=== PATIENT | male | born 1965 | race Two or more races ===

== ENCOUNTER 2018-05-17 11:11 | Inpatient (IN) | payer OTHER ==
[2018-05-17 13:50] VITALS: BMI 22.2
--- NOTE | 2018-05-17 14:12 | HP ---
COWS - Scale Resting Pulse: 1= [place] 81-100 Sweatin=Flushed/Facial Moisture Restless Observation: 3= Extraneous Movement Pupil Size: 1= Pupils >than Normal Bone or Joint Aches: 2= Severe Diffuse Aches Runny Nose/ Eye Tearin= Runny Nose/Eyes GI Upset > 30mins: 3= Vomiting/Diarrhea Tremor Observation: 2= Slight Tremor Visible Yawning Observation: 0= None Anxiety or Irritability: 4=Extreme Anxiety Goose Flesh Skin: 0=Smooth Skin COWS Score: 20 CIWA Score Nausea/Vomitin Muscle Tremors: 2 Anxiety: 3 Agitation: 0-Normal Activity Paroxysmal Sweats: 3 Orientation: 1-Uncertain about Date Tacttile Disturbances: 1-Very Mild Itch/Numbness Auditory Disturbances: 1-Very Mild Visual Disturbances: 2-Mild Sensitivity Headache: 4-Moderately Severe (8/10) CIWA-Ar Total Score: 20 - Admission Criteria OAS Guidelines: Admission for Medically Managed Detox: Requires at least one of the followin. CIWA greater than 12 2. Seizures within the past 24 hours 3. Delirium tremens within the past 24 hours 4. Hallucinations within the past 24 hours 5. Acute intervention needed for co occurring medical disorder 6. Acute intervention needed for co occurring psychiatric disorder 7. Severe withdrawal that cannot be handled at a lower level of care (continued vomiting, continued diarrhea, abnormal vital signs) requiring intravenous medication and/or fluids 8. Patient presents the following: CIWA greater than 12 Admission Criteria Met: Admission criteria met Admission ROS [facility] Chief Complaint: " detox" Allergies/Adverse Reactions: Allergies Allergy/AdvReac Type Severity Reaction Status Date / Time acetaminophen [From Tylenol] Allergy Severe Verified 05/17/18 13:45 Fish Containing Products Allergy Severe Verified 05/17/18 13:45 History of Present Illness: 53 yo male with hx of nicotine, heroin ( IV), alcohol and cocaine dependence is here seeking detox d/t withdrawal symptoms. last detox [facility] one year ago. Reports no significant period of sobriety. Utox positive for [place], Fen, bzo, MTD , denies MTD or bzo use. PMHX: Hep C. Psych: denies. Denies suicidal / homicidal ideation or hx of suicide attempts. Report suffered a seizure three weeks ago " because I did not drink." Denies hx of overdose. Exam Limitations: No Limitations - Ebola screening Have you traveled outside of the country in the last 21 days: No Have you had contact with anyone from an Ebola affected area: No - Review of Systems Constitutional: Diaphoresis, Loss of Appetite, Night Sweats, Weakness, Unintentional Wgt. 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) Neuro: reports: Headache, Dizziness Endocrine: reports: Excessive Sweating, Increased Thirst Hematology: reports: No Symptoms Reported Psychiatric: reports: Orientated x3, Anxious (restless) Other Systems: Reviewed and Negative Patient History - Patient Medical History Hx Anemia: No Hx Asthma: No Hx Chronic Obstructive Pulmonary Disease (COPD): No Hx Cancer: No Hx Cardiac Disorders: No Hx Congestive Heart Failure: No Hx Hypertension: No Hx Hypercholesterolemia: No Hx Pacemaker: No HX Cerebrovascular Accident: No Hx Seizures: No Hx Dementia: No Hx Diabetes: No Hx Gastrointestinal Disorders: No Hx Liver Disease: Yes (no treatment ) Hx Genitourinary Disorders: No Hx Sexually Transmitted Disorders: No Hx Renal Disease (ESRD): No Hx Thyroid Disease: No Hx Human Immunodeficiency Virus (HIV): No (negative) Hx Hepatitis C: Yes Hx Depression: No Hx Suicide Attempt: No Hx Bipolar Disorder: No Hx Schizophrenia: No - Patient Surgical History Past Surgical History: No - PPD History Previous Implant?: No Documented Results: Negative w/proof Date: 07/21/13 PPD to be Administered?: Yes - Smoking Cessation Smoking history: Current every day smoker Have you smoked in the past 12 months: No Aproximately how many cigarettes per day: 10 Cigars Per Day: 0 Hx Chewing Tobacco Use: No Initiated information on smoking cessation: Yes 'Breaking Loose' booklet given: 05/17/18 - Substance & Tx. History Hx Alcohol Use: Yes Hx Substance Use: Yes Substance Use Type: Alcohol, Heroin Hx Substance Use Treatment: Yes ([facility] one year ago ) - Substances abused Alcohol Substance route: Oral Frequency: Daily Amount used: 2 PINTS VODKA AND 2 + 6PACKS BEER Age of first use: 17 Date of last use: 05/17/18 Heroin Substance route: Injection Frequency: Daily Amount used: 15 BAGS Age of first use: 17 Date of last use: 05/17/18 Family Disease History - Family Disease History Family History: Denies Admission Physical Exam [facility] - Vital Signs Vital Signs: Vital Signs - 24 hr 05/17/18 05/17/18 13:46 13:59 Temperature 97.1 F L 97.1 F L Pulse Rate 96 H 96 H Respiratory 18 18 Rate Blood Pressure 128/79 128/79 - Physical General Appearance: Yes: Disheveled, Moderate Distress, Thin, Sweating, Anxious (restless) HEENTM: Yes: EOMI, Hearing grossly Normal, Normal ENT Inspection, Normocephalic , Normal Voice, SALUD, Pharynx Normal, Tm's normal, Other (dry mucous membranes, poor dentition) Respiratory: Yes: Chest Non-Tender, Lungs Clear, Normal Breath Sounds, No Respiratory Distress, No Accessory Muscle Use Neck: Yes: Within Normal Limits Breast: Yes: Breast Exam Deferred Cardiology: Yes: Regular Rhythm, Regular Rate Abdominal: Yes: Normal Bowel Sounds, Non Tender, Flat, Soft Genitourinary: Yes: Within Normal Limits Back: Yes: Normal Inspection Musculoskeletal: Yes: full range of Motion, Gait Steady, Pelvis Stable, Back pain Extremities: Yes: Normal Capillary Refill, Normal Inspection, Normal Range of Motion 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: 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, Fully Oriented, Alert, Motor Strength 5/5, Depressed Affect Integumentary: Yes: Normal Color, Warm, Diaphoresis, Other (bilateral anticubital fossa, no infection present) Lymphatic: Yes: Within Normal Limits - Diagnostic (1) Alcohol dependence with uncomplicated withdrawal Current Visit: Yes Status: Acute (2) Opioid dependence with withdrawal Current Visit: Yes Status: Acute (3) IVDU (intravenous drug user) Current Visit: Yes Status: Acute (4) Hep C w/ coma, chronic Current Visit: Yes Status: Acute (5) Nicotine dependence Current Visit: Yes Status: Chronic Qualifiers: Nicotine product type: cigarettes (6) Weight decreased Current Visit: Yes Status: Chronic Cleared for Admission [facility] - Detox or Rehab [facility] Level of Care: Medically Managed Detox Regimen/Protocol: Methadone/Librium Breathalyzer - Breathalyzer Breathalyzer: 0 Urine Drug Screen - Test Device Lot number: [id number] Expiration date: 01/09/20 - Control Is test valid?: Yes - Results Drug screen NEGATIVE: No Urine drug screen results: [place]-Cocaine, FEN-Fentanyl, MOP-Opiates, MTD-Methadone , BZO-Benzodiazepines Inpatient Rehab Admission - Rehab Decision to Admit Inpatient rehab admission?: No
[2018-05-17] MEDS ORDERED: MELATONIN 5 MG TABLETS PO PRN (14:18)
[2018-05-17] MEDS ORDERED: MENTHOL/PHENOL 1 EACH UD MM PRN (14:18)
[2018-05-17] MEDS ORDERED: MAGNESIUM CITRATE 300 ML BOTTLE PO PRN (14:18)
[2018-05-17] MEDS ORDERED: METHADONE HCL 10 MG TABLET (FOR DETOX USE ONLY) PO ONE ×2 (14:18→23:00)
[2018-05-17] MEDS ORDERED: BISMUTH SUBSALICYLATE 262 MG/15 ML BTL PO PRN (14:18)
[2018-05-17] MEDS ORDERED: IBUPROFEN 400 MG TABLET (FP) PO PRN ×2 (14:18)
[2018-05-17] MEDS ORDERED: NICOTINE POLACRILEX 2 MG GUM BUC PRN (14:18)
[2018-05-17] MEDS ORDERED: MAGNESIUM HYDROX 2400MG/30ML ORAL SUSPENSION 30 ML CUP PO PRN (14:18)
[2018-05-17] MEDS ORDERED: METHOCARBAMOL 500 MG TABLET PO PRN (14:18)
[2018-05-17] MEDS ORDERED: MAG HYDROX/AL HYDROX/SIMETH 30 ML UNIT-DOSE CUP PO PRN (14:18)
[2018-05-17] MEDS: BACITRACIN 0.9 GM PACKET TP SCH (15:47)
[2018-05-17 17:09] LABS: HEMATOCRIT 37.2 % (35.4-49); HEMOGLOBIN 12.1 GM/dL (11.7-16.9); MCH 28.1 pg (25.7-33.7); MCHC 32.5 g/dl (32.0-35.9); MEAN CELL VOLUME 86.5 fl (80-96); MEAN PLT VOLUME 8.1 fl (7.5-11.1); PLATELET COUNT 308 K/MM3 (134-434); RDW 13.7 % (11.9-15.9); WHITE BLOOD COUNT 6.4 K/mm3 (4.0-10.0)
[2018-05-17 17:21] LABS: ALBUMIN 3.4 g/dl (3.4-5.0); ALK PHOS 99 U/L (45-117); ANION GAP 6 MMOL/L (8-16); BILIRUBIN,TOTAL 0.6 mg/dL (0.2-1); BLOOD UREA NITROGEN 13 mg/dL (7-18); CALCIUM 8.4 mg/dL (8.5-10.1); CHLORIDE 104 mmol/L (98-107); CO2 31 mmol/L (21-32); GLUCOSE,RANDOM 97 mg/dL (74-106); POTASSIUM 4.4 mmol/L (3.5-5.1); SGOT/AST 81 U/L (15-37); SGPT/ALT 49 U/L (13-61); SODIUM 140 mmol/L (136-145); TOT PROT 6.8 g/dl (6.4-8.2)
[2018-05-17] MEDS: chlordiazePOXIDE HCL 25 MG CAPSULE PO SCH ×2 (17:46→22:17)
[2018-05-17] MEDS: cloNIDine HCL 0.1 MG TABLET PO PRN (20:27)
[2018-05-17] MEDS: THIAMINE HCL 100 MG TABLET (FP) PO SCH (22:16)
[2018-05-18] MEDS: chlordiazePOXIDE HCL 25 MG CAPSULE PO SCH ×4 (06:21→22:04)
[2018-05-18] MEDS ORDERED: METHADONE HCL 10 MG TABLET (FOR DETOX USE ONLY) PO ONE (10:00)
[2018-05-18] MEDS: BACITRACIN 0.9 GM PACKET TP SCH (10:32)
[2018-05-18] MEDS: NICOTINE 14 MG/24 HOURS TOPICAL PATCH TD SCH (10:33)
[2018-05-18] MEDS: PRENATAL VITAMINS W/ FOLIC ACID TABLET (FP) PO SCH (10:33)
[2018-05-18 11:15] LABS: URINE APPEARANCE CLEAR; URINE BILIRUBIN NEGATIVE (NEGATIVE); URINE COLOR YELLOW; URINE GLUCOSE (UA) NEGATIVE (NEGATIVE); URINE KETONE NEGATIVE (NEGATIVE); URINE LEUK ESTERASE NEGATIVE (NEGATIVE); URINE NITRITE NEGATIVE (NEGATIVE); URINE PROTEIN NEGATIVE (NEGATIVE)
--- NOTE | 2018-05-18 11:43 | PN ---
S CIWA - CIWA Score Nausea/Vomitin-No Nausea/No Vomiting Muscle Tremors: 3 Anxiety: 3 Agitation: 3 Paroxysmal Sweats: 3 Orientation: 0-Oriented Tacttile Disturbances: 0-None Auditory Disturbances: 0-None Visual Disturbances: 0-None Headache: 1-Very Mild CIWA-Ar Total Score: 13 BHS COWS - Scale Resting Pulse: 0= [place] 80 or Below Sweatin=Flushed/Facial Moisture Restless Observation: 1= Difficult to Sit Still Pupil Size: 0= Normal to Room Light Bone or Joint Aches: 2= Severe Diffuse Aches Runny Nose/ Eye Tearin= Nasal Congestion GI Upset > 30mins: 0= None Tremor Observation of Outstretched Hands: 2= Slight Tremor Visible Yawning Observation: 2= >3x During Session Anxiety or Irritability: 2=Irritable/Anxious Goose Flesh Skin: 0=Smooth Skin COWS Score: 12 BHS Progress Note (SOAP) Subjective: shakes sweats interrupted sleep body aches agitation loss appetite/some weight. Objective: 05/18/18 11:41 Vital Signs Temperature 97.5 F L 05/18/18 09:56 Pulse Rate 71 05/18/18 09:56 Respiratory Rate 18 05/18/18 09:56 Blood Pressure 109/54 L 05/18/18 09:56 O2 Sat by Pulse Oximetry (%) Laboratory Tests 05/17/18 05/17/18 05/17/18 14:35 14:35 14:35 WBC 6.4 RBC 4.30 Hgb 12.1 Hct 37.2 MCV 86.5 MCH 28.1 MCHC 32.5 RDW 13.7 Plt Count 308 D MPV 8.1 Sodium 140 Potassium 4.4 Chloride 104 Carbon Dioxide 31 Anion Gap 6 L BUN 13 Creatinine 1.0 Creat Clearance w eGFR 78.78 Random Glucose 97 Calcium 8.4 L Total Bilirubin 0.6 AST 81 H ALT 49 Alkaline Phosphatase 99 Total Protein 6.8 Albumin 3.4 Urine Color Urine Appearance Urine pH Ur Specific [place] Urine Protein Urine Glucose (UA) Urine Ketones Urine Blood Urine Nitrite Urine Bilirubin Urine Urobilinogen Ur Leukocyte Esterase RPR Titer Nonreactive HIV 1&2 Antibody Screen HIV P24 Antigen 05/17/18 05/18/18 14:35 05:58 WBC RBC Hgb Hct MCV MCH MCHC RDW Plt Count MPV Sodium Potassium Chloride Carbon Dioxide Anion Gap BUN Creatinine Creat Clearance w eGFR Random Glucose Calcium Total Bilirubin AST ALT Alkaline Phosphatase Total Protein Albumin Urine Color Yellow Urine Appearance Clear Urine pH 7.0 Ur Specific [place] 1.013 Urine Protein Negative Urine Glucose (UA) Negative Urine Ketones Negative Urine Blood Negative Urine Nitrite Negative Urine Bilirubin Negative Urine Urobilinogen 2.0 Ur Leukocyte Esterase Negative RPR Titer HIV 1&2 Antibody Screen Negative HIV P24 Antigen Negative aaox3 ambulating no acute distress Assessment: 05/18/18 11:42 withdrawal sx Plan: continue detox increase fluids ensure plus 120ml po bid
[2018-05-18] MEDS: chlordiazePOXIDE HCL 25 MG CAPSULE PO PRN ×2 (14:06→19:52)
--- NOTE | 2018-05-18 14:21 | EKG ---
Test Reason : Blood Pressure : / mmHG Vent. Rate : 085 BPM Atrial Rate : 085 BPM P-R Int : 128 ms QRS Dur : 088 ms QT Int : 362 ms P-R-T Axes : 076 037 063 degrees QTc Int : 430 ms NORMAL SINUS RHYTHM NORMAL ECG NO PREVIOUS ECGS AVAILABLE Confirmed by MD Joni, Eliazar ([id number]) on 05/18/2018 2:20:44 PM Referred By: Confirmed By:Eliazar Quinones MD
[2018-05-18] MEDS: cloNIDine HCL 0.1 MG TABLET PO PRN (14:46)
[2018-05-18] MEDS: THIAMINE HCL 100 MG TABLET (FP) PO SCH (22:04)
[2018-05-19] MEDS: chlordiazePOXIDE HCL 25 MG CAPSULE PO SCH ×2 (07:01→10:06)
[2018-05-19] MEDS ORDERED: METHADONE HCL 10 MG TABLET (FOR DETOX USE ONLY) PO ONE (10:00)
[2018-05-19] MEDS: PRENATAL VITAMINS W/ FOLIC ACID TABLET (FP) PO SCH (10:06)
[2018-05-19] MEDS: BACITRACIN 0.9 GM PACKET TP SCH (10:06)
[2018-05-19] MEDS: NICOTINE 14 MG/24 HOURS TOPICAL PATCH TD SCH (10:06)
--- NOTE | 2018-05-19 10:44 | PN ---
[facility] CIWA - CIWA Score Nausea/Vomitin-No Nausea/No Vomiting Muscle Tremors: 3 Anxiety: 2 Agitation: 2 Paroxysmal Sweats: 3 Orientation: 0-Oriented Tacttile Disturbances: 0-None Auditory Disturbances: 0-None Visual Disturbances: 0-None Headache: 0-None Present CIWA-Ar Total Score: 10 BHS COWS - Scale Resting Pulse: 0= [place] 80 or Below Sweatin=Flushed/Facial Moisture Restless Observation: 1= Difficult to Sit Still Pupil Size: 0= Normal to Room Light Bone or Joint Aches: 1= Mild Discomfort Runny Nose/ Eye Tearin= Nasal Congestion GI Upset > 30mins: 0= None Tremor Observation of Outstretched Hands: 1= Tremor [place], Not Seen Yawning Observation: 1= 1-2x During Session Anxiety or Irritability: 2=Irritable/Anxious Goose Flesh Skin: 0=Smooth Skin COWS Score: 9 BHS Progress Note (SOAP) Subjective: agitation sweats irritable interrupted sleep Objective: 05/19/18 10:48 Vital Signs Temperature 97.7 F 05/19/18 09:14 Pulse Rate 81 05/19/18 09:14 Respiratory Rate 18 05/19/18 09:14 Blood Pressure 113/64 05/19/18 09:14 O2 Sat by Pulse Oximetry (%) Laboratory Tests 05/17/18 05/17/18 05/17/18 14:35 14:35 14:35 WBC 6.4 RBC 4.30 Hgb 12.1 Hct 37.2 MCV 86.5 MCH 28.1 MCHC 32.5 RDW 13.7 Plt Count 308 D MPV 8.1 Sodium 140 Potassium 4.4 Chloride 104 Carbon Dioxide 31 Anion Gap 6 L BUN 13 Creatinine 1.0 Creat Clearance w eGFR 78.78 Random Glucose 97 Calcium 8.4 L Total Bilirubin 0.6 AST 81 H ALT 49 Alkaline Phosphatase 99 Total Protein 6.8 Albumin 3.4 Urine Color Urine Appearance Urine pH Ur Specific [place] Urine Protein Urine Glucose (UA) Urine Ketones Urine Blood Urine Nitrite Urine Bilirubin Urine Urobilinogen Ur Leukocyte Esterase RPR Titer Nonreactive HIV 1&2 Antibody Screen HIV P24 Antigen 05/17/18 05/18/18 14:35 05:58 WBC RBC Hgb Hct MCV MCH MCHC RDW Plt Count MPV Sodium Potassium Chloride Carbon Dioxide Anion Gap BUN Creatinine Creat Clearance w eGFR Random Glucose Calcium Total Bilirubin AST ALT Alkaline Phosphatase Total Protein Albumin Urine Color Yellow Urine Appearance Clear Urine pH 7.0 Ur Specific [place] 1.013 Urine Protein Negative Urine Glucose (UA) Negative Urine Ketones Negative Urine Blood Negative Urine Nitrite Negative Urine Bilirubin Negative Urine Urobilinogen 2.0 Ur Leukocyte Esterase Negative RPR Titer HIV 1&2 Antibody Screen Negative HIV P24 Antigen Negative aaox3 ambulating no acute distress Assessment: 05/19/18 10:49 withdrawal sx Plan: continue detox increase fluids
[2018-05-19] MEDS: chlordiazePOXIDE HCL 25 MG CAPSULE PO PRN (14:07)
[2018-05-19] MEDS ORDERED: chlordiazePOXIDE HCL 10 MG CAPSULE PO PRN (17:00)
[2018-05-19] MEDS: cloNIDine HCL 0.1 MG TABLET PO PRN (17:42)
[2018-05-19] MEDS: chlordiazePOXIDE HCL 10 MG CAPSULE PO SCH ×2 (17:43→22:18)
--- NOTE | 2018-05-19 19:03 | PN ---
S Progress Note Note: Vital Signs Temperature 97.8 F 05/19/18 17:28 Pulse Rate 80 05/19/18 17:28 Respiratory Rate 18 05/19/18 17:28 Blood Pressure 117/62 05/19/18 17:28 O2 Sat by Pulse Oximetry (%) c/o of insomnia one time dose seroquel 25 mg hs continue to monitor
[2018-05-19 21:21] VITALS: BP 120/58; PULSE 81; TEMP 97.2
[2018-05-19] MEDS ORDERED: QUEtiapine FUMARATE 25 MG TABLET (FP) PO ONE (22:00)
[2018-05-19] MEDS: THIAMINE HCL 100 MG TABLET (FP) PO SCH (22:18)
[2018-05-20] MEDS ORDERED: chlordiazePOXIDE HCL 10 MG CAPSULE PO ONE (06:00)
[2018-05-20] MEDS ORDERED: METHADONE HCL 10 MG TABLET (FOR DETOX USE ONLY) PO ONE (10:00)
[2018-05-20] MEDS ORDERED: chlordiazePOXIDE HCL 10 MG CAPSULE PO SCH (17:00)
[2018-05-21] MEDS ORDERED: METHADONE HCL 5 MG TABLET (FOR DETOX USE ONLY) PO ONE (06:00)
== END 2018-05-19 22:53 | disposition left against medical advice (07) | DRG 770 ==
LOC: YASAS 11:11 → Y6N 15:14
PROVIDERS: ADMIT Surgery; ATTEND Surgery
PROC: HZ2ZZZZ Detoxification Services for Substance Abuse Treatment (ICD-10-PCS; principal; 2018-05-17)
DX: F11.23 Opioid dependence with withdrawal (principal); F10.230 Alcohol dependence with withdrawal, uncomplicated; F17.210 Nicotine dependence, cigarettes, uncomplicated; G47.00 Insomnia, unspecified; B18.2 Chronic viral hepatitis C; R63.4 Abnormal weight loss; Z88.6 Allergy status to analgesic agent; Z91.013 Allergy to seafood
CPT/HCPCS: 36415; 80053; 81003; 85027; 86593; 87389; 93005; 93010; J0735

== ENCOUNTER 2018-06-16 09:32 | Inpatient (IN) | payer OTHER ==
[2018-06-16 10:11] VITALS: BMI 21.9
--- NOTE | 2018-06-16 11:43 | HP ---
COWS - Scale Resting Pulse: 1= [place] 81-100 Sweatin= Chills/Flushing Restless Observation: 3= Extraneous Movement Pupil Size: 1= Pupils >than Normal Bone or Joint Aches: 2= Severe Diffuse Aches Runny Nose/ Eye Tearin= Runny Nose/Eyes GI Upset > 30mins: 2= Nausea/Diarrhea Tremor Observation: 2= Slight Tremor Visible Yawning Observation: 2= >3x During Session Anxiety or Irritability: 2=Irritable/Anxious Goose Flesh Skin: 0=Smooth Skin COWS Score: 18 CIWA Score Nausea/Vomitin Muscle Tremors: 2 Anxiety: 3 Agitation: 2 Paroxysmal Sweats: 1-Minimal Palms Moist Orientation: 0-Oriented Tacttile Disturbances: 1-Very Mild Itch/Numbness Auditory Disturbances: 1-Very Mild Visual Disturbances: 0-None Headache: 2-Mild CIWA-Ar Total Score: 14 - Admission Criteria OASAS Guidelines: Admission for Medically Managed Detox: Requires at least one of the followin. CIWA greater than 12 2. Seizures within the past 24 hours 3. Delirium tremens within the past 24 hours 4. Hallucinations within the past 24 hours 5. Acute intervention needed for co occurring medical disorder 6. Acute intervention needed for co occurring psychiatric disorder 7. Severe withdrawal that cannot be handled at a lower level of care (continued vomiting, continued diarrhea, abnormal vital signs) requiring intravenous medication and/or fluids 8. Admission ROS S - [facility] Chief Complaint: i need help to stop using heroin,alcohol,cocaine,xanax Allergies/Adverse Reactions: Allergies Allergy/AdvReac Type Severity Reaction Status Date / Time acetaminophen [From Tylenol] Allergy Severe Verified 06/16/18 10:00 Fish Containing Products Allergy Severe Verified 06/16/18 10:00 History of Present Illness: this 53 years old male with heroin,alcohol and cocaine dependence,seeking detox, withdrawal symptom, multiple admissions in detox last detox [facility] 05/17/18 to 05/19/18 seizure last 05/28 hepatitis c no treatment keep relapsing longest period of sobriety 3 years plan for rehab Exam Limitations: No Limitations - Ebola screening Have you traveled outside of the country in the last 21 days: No (N) Have you had contact with anyone from an Ebola affected area: No Do you have a fever: No - Review of Systems Constitutional: Chills, Loss of Appetite, Night Sweats, Changes in sleep, Unintentional Wgt. Loss EENT: reports: Tearing, Hearing Loss Respiratory: reports: No Symptoms reported Cardiac: reports: No Symptoms Reported GI: reports: Nausea, Poor Appetite, Vomiting : reports: No Symptoms Reported Musculoskeletal: reports: Back Pain, Joint Pain, Muscle Pain, Joint Stiffness Integumentary: reports: Dryness Neuro: reports: Headache, Tremors Endocrine: reports: No Symptoms Reported Hematology: reports: No Symptoms Reported Psychiatric: reports: No Sypmtoms Reported, Judgement Intact, Mood/Affect Appropiate, Orientated x3 Other Systems: Reviewed and Negative Patient History - Patient Medical History Hx Anemia: No Hx Asthma: No Hx Chronic Obstructive Pulmonary Disease (COPD): No Hx Cancer: No Hx Cardiac Disorders: No Hx Congestive Heart Failure: No Hx Hypertension: No Hx Hypercholesterolemia: No Hx Pacemaker: No HX Cerebrovascular Accident: No Hx Seizures: Yes (drug/etoh related 3 weeks ago) Hx Dementia: No Hx Diabetes: No Hx Gastrointestinal Disorders: No Hx Liver Disease: Yes (no treatment ) Hx Genitourinary Disorders: No Hx Sexually Transmitted Disorders: No Hx Renal Disease (ESRD): No Hx Thyroid Disease: No Hx Human Immunodeficiency Virus (HIV): No (negative last 03/30 negative) Hx Hepatitis C: Yes (no treatment) Hx Depression: No Hx Suicide Attempt: No Hx Bipolar Disorder: No Hx Schizophrenia: No Other Medical History: no suicidal,no homicidal - Patient Surgical History Past Surgical History: No - PPD History Previous Implant?: Yes Implanted On Prior R Admission?: Yes Date: 05/19/18 Results: 0 mm PPD to be Administered?: No - Smoking Cessation Smoking history: Current every day smoker Have you smoked in the past 12 months: No Aproximately how many cigarettes per day: 10 Cigars Per Day: 0 Hx Chewing Tobacco Use: No Initiated information on smoking cessation: Yes 'Breaking Loose' booklet given: 06/16/18 - Substance & Tx. History Hx Alcohol Use: Yes Hx Substance Use: Yes Substance Use Type: Alcohol, Cocaine, Heroin Hx Substance Use Treatment: Yes ([facility] 05/[facility]/18[facility] 05/19/18 not completed) - Substances abused Alcohol Substance route: Oral Frequency: Daily Amount used: 2 PINTS VODKA AND 2 + 6PACKS BEER Age of first use: 17 Date of last use: 06/15/18 Heroin Substance route: Injection Frequency: Daily Amount used: 20 BAGS Age of first use: 17 Date of last use: 06/15/18 Cocaine Substance route: Injection Frequency: Daily Amount used: 100$ Age of first use: 27 Date of last use: 06/15/18 Family Disease History - Family Disease History Family History: Denies Admission Physical Exam [facility] - Vital Signs Vital Signs: Vital Signs - 24 hr 06/16/18 10:02 Temperature 98.4 F Pulse Rate 83 Respiratory 18 Rate Blood Pressure 107/62 - Physical General Appearance: Yes: Moderate Distress, Tremorous, Irritable, Sweating, Anxious HEENTM: Yes: Normal ENT Inspection, SALUD, Pharynx Normal Respiratory: Yes: Within Normal Limits, Lungs Clear, Normal Breath Sounds, No Respiratory Distress Neck: Yes: Within Normal Limits, Supple, Trachea in good position Breast: Yes: Within Normal Limits Cardiology: Yes: Regular Rhythm, Regular Rate, S1, S2, Bradycardia Abdominal: Yes: Within Normal Limits, Normal Bowel Sounds, Non Tender, Flat Genitourinary: Yes: Within Normal Limits Back: Yes: Muscle Spasm Musculoskeletal: Yes: Back pain, Joint Stiffness, Muscle Pain Extremities: Yes: Normal Range of Motion, Tremors 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, Fully Oriented, Alert, Motor Strength 5/5 Integumentary: Yes: Dry, Track [place] Lymphatic: Yes: Within Normal Limits - Diagnostic (1) Opioid dependence with withdrawal Current Visit: No Status: Acute (2) Alcohol dependence with uncomplicated withdrawal Current Visit: No Status: Acute (3) IVDU (intravenous drug user) Current Visit: No Status: Acute (4) Nicotine dependence Current Visit: No Status: Chronic Qualifiers: Nicotine product type: cigarettes (5) Weight decreased Current Visit: No Status: Chronic (6) Cocaine dependence Current Visit: Yes Status: Acute (7) Hepatitis C Current Visit: Yes Status: Acute Cleared for Admission [facility] - Detox or Rehab [facility] Level of Care: Medically Managed Detox Regimen/Protocol: Methadone/Librium Breathalyzer - Breathalyzer Breathalyzer: 0 Urine Drug Screen - Test Device Lot number: [id number] Expiration date: 01/09/20 - Control Is test valid?: Yes - Results Drug screen NEGATIVE: No Urine drug screen results: MISSY-Cocaine, FEN-Fentanyl, MOP-Opiates, MTD-Methadone , BZO-Benzodiazepines Inpatient Rehab Admission - Rehab Decision to Admit Inpatient rehab admission?: No
[2018-06-16] MEDS ORDERED: MAGNESIUM HYDROX 2400MG/30ML ORAL SUSPENSION 30 ML CUP PO PRN (11:52)
[2018-06-16] MEDS ORDERED: MAG HYDROX/AL HYDROX/SIMETH 30 ML UNIT-DOSE CUP PO PRN (11:52)
[2018-06-16] MEDS ORDERED: MENTHOL/PHENOL 1 EACH UD MM PRN (11:52)
[2018-06-16] MEDS ORDERED: cloNIDine HCL 0.1 MG TABLET PO PRN (11:52)
[2018-06-16] MEDS ORDERED: hydrOXYzine PAMOATE 25 MG CAPSULE (FP) PO PRN (11:52)
[2018-06-16] MEDS ORDERED: METHOCARBAMOL 500 MG TABLET PO PRN (11:52)
[2018-06-16] MEDS ORDERED: MELATONIN 5 MG TABLETS PO PRN (11:52)
[2018-06-16] MEDS ORDERED: MAGNESIUM CITRATE 300 ML BOTTLE PO PRN (11:52)
[2018-06-16] MEDS ORDERED: BISMUTH SUBSALICYLATE 262 MG/15 ML BTL PO PRN (11:52)
[2018-06-16] MEDS ORDERED: IBUPROFEN 400 MG TABLET (FP) PO PRN (11:52)
[2018-06-16] MEDS ORDERED: chlordiazePOXIDE HCL 25 MG CAPSULE PO PRN (11:59)
[2018-06-16] MEDS ORDERED: METHADONE HCL 10 MG TABLET (FOR DETOX USE ONLY) PO ONE ×2 (12:50→23:00)
[2018-06-16 15:30] LABS: ALBUMIN 3.5 g/dl (3.4-5.0); BILIRUBIN,TOTAL 0.8 mg/dL (0.2-1); CALCIUM 9.1 mg/dL (8.5-10.1); CREATININE 0.9 mg/dL (0.55-1.3); HEMATOCRIT 37.2 % (35.4-49); HEMOGLOBIN 12.5 GM/dL (11.7-16.9); MCH 28.3 pg (25.7-33.7); MCHC 33.5 g/dl (32.0-35.9); MEAN CELL VOLUME 84.6 fl (80-96); MEAN PLT VOLUME 7.9 fl (7.5-11.1); PLATELET COUNT 292 K/MM3 (134-434); POTASSIUM 4.9 mmol/L (3.5-5.1); RDW 13.8 % (11.9-15.9); WHITE BLOOD COUNT 8.9 K/mm3 (4.0-10.0)
[2018-06-16] MEDS: chlordiazePOXIDE HCL 25 MG CAPSULE PO SCH ×2 (17:24→22:11)
[2018-06-16 18:38] LABS: PH,URINE 7.5 (5.0-8.0); URINE APPEARANCE CLEAR; URINE BILIRUBIN NEGATIVE (NEGATIVE); URINE COLOR YELLOW; URINE GLUCOSE (UA) NEGATIVE (NEGATIVE); URINE KETONE NEGATIVE (NEGATIVE); URINE LEUK ESTERASE NEGATIVE (NEGATIVE); URINE NITRITE NEGATIVE (NEGATIVE); URINE PROTEIN NEGATIVE (NEGATIVE)
[2018-06-16] MEDS: THIAMINE HCL 100 MG TABLET (FP) PO SCH (22:11)
[2018-06-17] MEDS: chlordiazePOXIDE HCL 25 MG CAPSULE PO SCH ×4 (06:14→22:07)
[2018-06-17] MEDS ORDERED: METHADONE HCL 10 MG TABLET (FOR DETOX USE ONLY) PO ONE (10:00)
--- NOTE | 2018-06-17 10:15 | PN ---
[facility] CIWA - CIWA Score Nausea/Vomitin-Mild Nausea/No Vomiting Muscle Tremors: 4-Moderate,w/Arms Extend Anxiety: 3 Agitation: 2 Paroxysmal Sweats: 1-Minimal Palms Moist Orientation: 1-Uncertain about Date Tacttile Disturbances: 0-None Auditory Disturbances: 0-None Visual Disturbances: 0-None Headache: 1-Very Mild CIWA-Ar Total Score: 13 BHS COWS - Scale Resting Pulse: 0= [place] 80 or Below Sweatin= Chills/Flushing Restless Observation: 1= Difficult to Sit Still Pupil Size: 0= Normal to Room Light Bone or Joint Aches: 2= Severe Diffuse Aches Runny Nose/ Eye Tearin= Nasal Congestion GI Upset > 30mins: 2= Nausea/Diarrhea Tremor Observation of Outstretched Hands: 2= Slight Tremor Visible Yawning Observation: 2= >3x During Session Anxiety or Irritability: 2=Irritable/Anxious Goose Flesh Skin: 0=Smooth Skin COWS Score: 13 S Progress Note (SOAP) Subjective: tire low energy trouble sleep through the night Objective: 06/17/18 10:15 Vital Signs Temperature 96.8 F L 06/17/18 09:07 Pulse Rate 71 06/17/18 09:07 Respiratory Rate 18 06/17/18 09:07 Blood Pressure 93/57 L 06/17/18 09:07 O2 Sat by Pulse Oximetry (%) Laboratory Last Values WBC 8.9 K/mm3 (4.0-10.0) 06/16/18 10:00 RBC 4.40 M/mm3 (4.00-5.60) 06/16/18 10:00 Hgb 12.5 GM/dL (11.7-16.9) 06/16/18 10:00 Hct 37.2 % (35.4-49) 06/16/18 10:00 MCV 84.6 fl (80-96) 06/16/18 10:00 MCH 28.3 pg (25.7-33.7) 06/16/18 10:00 MCHC 33.5 g/dl (32.0-35.9) 06/16/18 10:00 RDW 13.8 % (11.9-15.9) 06/16/18 10:00 Plt Count 292 K/MM3 (134-434) 06/16/18 10:00 MPV 7.9 fl (7.5-11.1) 06/16/18 10:00 Sodium 139 mmol/L (136-145) 06/16/18 10:00 Potassium 4.9 mmol/L (3.5-5.1) 06/16/18 10:00 Chloride 101 mmol/L (98-107) 06/16/18 10:00 Carbon Dioxide 35 mmol/L (21-32) H 06/16/18 10:00 Anion Gap 4 MMOL/L (8-16) L 06/16/18 10:00 BUN 16 mg/dL (7-18) 06/16/18 10:00 Creatinine 0.9 mg/dL (0.55-1.3) 06/16/18 10:00 Est GFR (CKD-EPI)AfAm 114.21 06/16/18 10:00 Est GFR (CKD-EPI)NonAf 98.54 06/16/18 10:00 Random Glucose 103 mg/dL (74-106) 06/16/18 10:00 Calcium 9.1 mg/dL (8.5-10.1) 06/16/18 10:00 Total Bilirubin 0.8 mg/dL (0.2-1) 06/16/18 10:00 AST 36 U/L (15-37) 06/16/18 10:00 ALT 35 U/L (13-61) 06/16/18 10:00 Alkaline Phosphatase 119 U/L (45-117) H 06/16/18 10:00 Total Protein 7.0 g/dl (6.4-8.2) 06/16/18 10:00 Albumin 3.5 g/dl (3.4-5.0) 06/16/18 10:00 Urine Color Yellow 06/16/18 13:30 Urine Appearance Clear 06/16/18 13:30 Urine pH 7.5 (5.0-8.0) 06/16/18 13:30 Ur Specific [place] 1.011 (1.010-1.035) 06/16/18 13:30 Urine Protein Negative (NEGATIVE) 06/16/18 13:30 Urine Glucose (UA) Negative (NEGATIVE) 06/16/18 13:30 Urine Ketones Negative (NEGATIVE) 06/16/18 13:30 Urine Blood Negative (NEGATIVE) 06/16/18 13:30 Urine Nitrite Negative (NEGATIVE) 06/16/18 13:30 Urine Bilirubin Negative (NEGATIVE) 06/16/18 13:30 Urine Urobilinogen 1.0 mg/dL (0.2-1.0) 06/16/18 13:30 Ur Leukocyte Esterase Negative (NEGATIVE) 06/16/18 13:30 RPR Titer Nonreactive (NONREACTIVE) 06/16/18 10:00 lab noted Assessment: 06/17/18 10:15 alcohol benzo opiate withdrawal sx Plan: continue detox
[2018-06-17] MEDS: PRENATAL VITAMINS W/ FOLIC ACID TABLET (FP) PO SCH (10:28)
[2018-06-17] MEDS: THIAMINE HCL 100 MG TABLET (FP) PO SCH (22:07)
[2018-06-18] MEDS: chlordiazePOXIDE HCL 25 MG CAPSULE PO SCH ×2 (05:46→10:17)
[2018-06-18] MEDS ORDERED: METHADONE HCL 10 MG TABLET (FOR DETOX USE ONLY) PO ONE (10:00)
[2018-06-18] MEDS: PRENATAL VITAMINS W/ FOLIC ACID TABLET (FP) PO SCH (10:17)
[2018-06-18 13:48] VITALS: BP 108/69; PULSE 72; TEMP 96.8
--- NOTE | 2018-06-18 16:03 | PN ---
S CIWA - CIWA Score Nausea/Vomitin-No Nausea/No Vomiting Muscle Tremors: None Anxiety: 3 Agitation: 2 Paroxysmal Sweats: 2 Orientation: 0-Oriented Tacttile Disturbances: 2-Mild Itch/Numbness/Burn Auditory Disturbances: 0-None Visual Disturbances: 2-Mild Sensitivity Headache: 0-None Present CIWA-Ar Total Score: 11 S COWS - Scale Resting Pulse: 0= [place] 80 or Below Sweatin= Chills/Flushing Restless Observation: 1= Difficult to Sit Still Pupil Size: 0= Normal to Room Light Bone or Joint Aches: 1= Mild Discomfort Runny Nose/ Eye Tearin= Nasal Congestion GI Upset > 30mins: 0= None Tremor Observation of Outstretched Hands: 0= None Yawning Observation: 1= 1-2x During Session Anxiety or Irritability: 2=Irritable/Anxious Goose Flesh Skin: 0=Smooth Skin COWS Score: 7 S Progress Note (SOAP) Subjective: Interrupted Sleep, Sweating, Anxious. Objective: PATIENT A & O X 3, OBSERVED AMBULATING ON UNIT UNASSISTED. IN NO ACUTE DISTRESS. 06/18/18 16:02 Vital Signs Temperature 96.8 F L 06/18/18 13:48 Pulse Rate 72 06/18/18 13:48 Respiratory Rate 18 06/18/18 13:48 Blood Pressure 108/69 06/18/18 13:48 O2 Sat by Pulse Oximetry (%) Laboratory Tests 06/16/18 06/16/18 06/16/18 10:00 10:00 10:00 WBC 8.9 RBC 4.40 Hgb 12.5 Hct 37.2 MCV 84.6 MCH 28.3 MCHC 33.5 RDW 13.8 Plt Count 292 MPV 7.9 Sodium 139 Potassium 4.9 Chloride 101 Carbon Dioxide 35 H Anion Gap 4 L BUN 16 Creatinine 0.9 Est GFR (CKD-EPI)AfAm 114.21 Est GFR (CKD-EPI)NonAf 98.54 Random Glucose 103 Calcium 9.1 Total Bilirubin 0.8 AST 36 ALT 35 Alkaline Phosphatase 119 H Total Protein 7.0 Albumin 3.5 Urine Color Urine Appearance Urine pH Ur Specific [place] Urine Protein Urine Glucose (UA) Urine Ketones Urine Blood Urine Nitrite Urine Bilirubin Urine Urobilinogen Ur Leukocyte Esterase RPR Titer Nonreactive 06/16/18 13:30 WBC RBC Hgb Hct MCV MCH MCHC RDW Plt Count MPV Sodium Potassium Chloride Carbon Dioxide Anion Gap BUN Creatinine Est GFR (CKD-EPI)AfAm Est GFR (CKD-EPI)NonAf Random Glucose Calcium Total Bilirubin AST ALT Alkaline Phosphatase Total Protein Albumin Urine Color Yellow Urine Appearance Clear Urine pH 7.5 Ur Specific [place] 1.011 Urine Protein Negative Urine Glucose (UA) Negative Urine Ketones Negative Urine Blood Negative Urine Nitrite Negative Urine Bilirubin Negative Urine Urobilinogen 1.0 Ur Leukocyte Esterase Negative RPR Titer LABS NOTED. Assessment: 06/18/18 16:02 WITHDRAWAL SYMPTOMS. Plan: CONTINUE DETOX.
--- NOTE | 2018-06-18 16:05 | DS ---
[facility] Detox Discharge Summary Admission Date: 06/16/18 Discharge Date: 06/18/18 - History Present History: Alcohol Dependence, Cocaine Dependence, Opioid Dependence Additional Comments: PATIENT PATIENT REPORTS FAMILY EMERGENCY AND THAT HE DOES NOT WISH TO REMAIN TO COMPLETE DETOX REGIMEN. RISKS OF LEAVING DETOX UNIT AGAINST MEDICAL ADVICE AND PRIOR TO COMPLETION OF DETOX REGIMEN EXPLAINED TO PATIENT. PATIENT ADVISED TO GO IMMEDIATELY TO NEAREST ER SHOULD ANY INTOLERABLE WITHDRAWAL / DETOX SYMPTOMS DEVELOP AT ANY TIME. PATIENT VERBALIZED UNDERSTANDING OF ALL INFORMATION / RECOMMENDATIONS PRESENTED TO HIM PRIOR TO DEPARTURE FROM DETOX UNIT. PATIENT LEFT DETOX UNIT IN STABLE MEDICAL CONDITION. Pertinent Past History: History of Seizures, Hep C, Intravenous Drug User, Weight Decreased, Nicotine Dependence. - Physical Exam Results Vital Signs: Vital Signs Temperature 96.8 F L 06/18/18 13:48 Pulse Rate 72 06/18/18 13:48 Respiratory Rate 18 06/18/18 13:48 Blood Pressure 108/69 06/18/18 13:48 O2 Sat by Pulse Oximetry (%) Pertinent Admission Physical Exam Findings: WITHDRAWAL SYMPTOMS. Laboratory Tests 06/16/18 06/16/18 06/16/18 10:00 10:00 10:00 WBC 8.9 RBC 4.40 Hgb 12.5 Hct 37.2 MCV 84.6 MCH 28.3 MCHC 33.5 RDW 13.8 Plt Count 292 MPV 7.9 Sodium 139 Potassium 4.9 Chloride 101 Carbon Dioxide 35 H Anion Gap 4 L BUN 16 Creatinine 0.9 Est GFR (CKD-EPI)AfAm 114.21 Est GFR (CKD-EPI)NonAf 98.54 Random Glucose 103 Calcium 9.1 Total Bilirubin 0.8 AST 36 ALT 35 Alkaline Phosphatase 119 H Total Protein 7.0 Albumin 3.5 Urine Color Urine Appearance Urine pH Ur Specific [place] Urine Protein Urine Glucose (UA) Urine Ketones Urine Blood Urine Nitrite Urine Bilirubin Urine Urobilinogen Ur Leukocyte Esterase RPR Titer Nonreactive 06/16/18 13:30 WBC RBC Hgb Hct MCV MCH MCHC RDW Plt Count MPV Sodium Potassium Chloride Carbon Dioxide Anion Gap BUN Creatinine Est GFR (CKD-EPI)AfAm Est GFR (CKD-EPI)NonAf Random Glucose Calcium Total Bilirubin AST ALT Alkaline Phosphatase Total Protein Albumin Urine Color Yellow Urine Appearance Clear Urine pH 7.5 Ur Specific [place] 1.011 Urine Protein Negative Urine Glucose (UA) Negative Urine Ketones Negative Urine Blood Negative Urine Nitrite Negative Urine Bilirubin Negative Urine Urobilinogen 1.0 Ur Leukocyte Esterase Negative RPR Titer LABS NOTED. - Treatment Hospital Course: Detox Protocol Followed, Detoxed Safely - Medication Discharge Medications: Ambulatory Orders NK [No Known Home Medication] 07/19/13 - Diagnosis (1) Alcohol dependence with uncomplicated withdrawal Status: Acute (2) Cocaine dependence Status: Acute Qualifiers: Substance use status: in withdrawal Qualified Code(s): F14.23 - Cocaine dependence with withdrawal (3) Hepatitis C Status: Acute Qualifiers: Viral hepatitis chronicity: chronic Hepatic coma status: without hepatic coma Qualified Code(s): B18.2 - Chronic viral hepatitis C (4) IVDU (intravenous drug user) Status: Acute (5) Opioid dependence with withdrawal Status: Acute (6) Nicotine dependence Status: Chronic Qualifiers: Nicotine product type: cigarettes Substance use status: uncomplicated Qualified Code(s): F17.210 - Nicotine dependence, cigarettes, uncomplicated (7) Weight decreased Status: Chronic - AMA Did Patient Leave Against Medical Advice: Yes (PATIENT DID NOT WISH TO REMAIN TO COMPLETE DETOX REGIMEN.)
[2018-06-18] MEDS ORDERED: chlordiazePOXIDE HCL 10 MG CAPSULE PO PRN (17:00)
[2018-06-18] MEDS ORDERED: chlordiazePOXIDE HCL 10 MG CAPSULE PO SCH (17:00)
[2018-06-19] MEDS ORDERED: METHADONE (DETOX) 10 MG, METHADONE (DETOX) 5 MG PO ONE (10:00)
[2018-06-19] MEDS ORDERED: METHADONE HCL 10 MG TABLET (FOR DETOX USE ONLY) PO ONE (10:00)
[2018-06-19] MEDS ORDERED: chlordiazePOXIDE HCL 10 MG CAPSULE PO SCH (17:00)
[2018-06-20] MEDS ORDERED: METHADONE HCL 5 MG TABLET (FOR DETOX USE ONLY) PO ONE (06:00)
[2018-06-20] MEDS ORDERED: METHADONE HCL 10 MG TABLET (FOR DETOX USE ONLY) PO ONE (10:00)
[2018-06-21] MEDS ORDERED: METHADONE HCL 5 MG TABLET (FOR DETOX USE ONLY) PO ONE (06:00)
== END 2018-06-18 15:20 | disposition left against medical advice (07) | DRG 770 ==
LOC: YASAS 09:32 → Y3N 11:44
PROVIDERS: ADMIT Surgery; ATTEND Surgery
PROC: HZ2ZZZZ Detoxification Services for Substance Abuse Treatment (ICD-10-PCS; principal; 2018-06-16)
DX: F11.23 Opioid dependence with withdrawal (principal); F10.230 Alcohol dependence with withdrawal, uncomplicated; F14.20 Cocaine dependence, uncomplicated; F17.210 Nicotine dependence, cigarettes, uncomplicated; B18.2 Chronic viral hepatitis C; R63.4 Abnormal weight loss; R00.1 Bradycardia, unspecified; Z86.69 Personal history of other diseases of the nervous system and sense organs; Z88.6 Allergy status to analgesic agent; Z91.013 Allergy to seafood
CPT/HCPCS: 36415; 80053; 81003; 85027; 86593

== ENCOUNTER 2018-07-03 09:05 | Inpatient (IN) | payer OTHER | END 2018-07-05 12:00 | disposition home or self-care (01) | LOC: YASAS 09:05 → Y3N 07-04 19:22 ==

== ENCOUNTER 2018-08-23 08:18 | Inpatient (IN) | payer OTHER ==
[2018-08-23 09:11] VITALS: BMI 22.1
--- NOTE | 2018-08-23 09:33 | HP ---
COWS - Scale Resting Pulse: 0= [place] 80 or Below Sweatin= Chills/Flushing Restless Observation: 1= Difficult to Sit Still Pupil Size: 1= Pupils >than Normal Bone or Joint Aches: 2= Severe Diffuse Aches Runny Nose/ Eye Tearin= Runny Nose/Eyes GI Upset > 30mins: 2= Nausea/Diarrhea Tremor Observation: 2= Slight Tremor Visible Yawning Observation: 2= >3x During Session Anxiety or Irritability: 2=Irritable/Anxious Goose Flesh Skin: 0=Smooth Skin COWS Score: 15 CIWA Score Nausea/Vomitin Muscle Tremors: 2 Anxiety: 2 Agitation: 2 Paroxysmal Sweats: 1-Minimal Palms Moist Orientation: 0-Oriented Tacttile Disturbances: 1-Very Mild Itch/Numbness Auditory Disturbances: 1-Very Mild Visual Disturbances: 0-None Headache: 2-Mild CIWA-Ar Total Score: 13 - Admission Criteria [facility] Guidelines: Admission for Medically Managed Detox: Requires at least one of the followin. CIWA greater than 12 2. Seizures within the past 24 hours 3. Delirium tremens within the past 24 hours 4. Hallucinations within the past 24 hours 5. Acute intervention needed for co occurring medical disorder 6. Acute intervention needed for co occurring psychiatric disorder 7. Severe withdrawal that cannot be handled at a lower level of care (continued vomiting, continued diarrhea, abnormal vital signs) requiring intravenous medication and/or fluids 8. Admission ROS S - [facility] Chief Complaint: i need help to stop using heroin,alcohol and cocaine Allergies/Adverse Reactions: Allergies Allergy/AdvReac Type Severity Reaction Status Date / Time acetaminophen [From Tylenol] Allergy Severe Verified 08/23/18 09:05 Fish Containing Products Allergy Severe Verified 08/23/18 09:05 History of Present Illness: this 53 years old male with heroin,alcohol,cocaine dependence,seeking detox, withdrawal symptom, multiple admissions in detox,last detox 07/03/18 to 07/05/18 not completed but keep relapsing hepatitis c weight loss nicotine dependence 4 cigarette/day requested gum longest period of sobriety 3 years plan for rehab after detox seizure last 02/27 syncope Exam Limitations: No Limitations - Ebola screening Have you traveled outside of the country in the last 21 days: No Have you had contact with anyone from an Ebola affected area: No Do you have a fever: No - Review of Systems Constitutional: Chills, Loss of Appetite, Malaise, Night Sweats, Changes in sleep, Unintentional Wgt. Loss EENT: reports: Tearing, Nose Congestion Respiratory: reports: No Symptoms reported Cardiac: reports: No Symptoms Reported GI: reports: Diarrhea, Nausea, Poor Appetite, Vomiting : reports: No Symptoms Reported Musculoskeletal: reports: Back Pain, Joint Pain, Muscle Pain, Joint Stiffness Integumentary: reports: Dryness Neuro: reports: Headache, Tremors Endocrine: reports: No Symptoms Reported Hematology: reports: No Symptoms Reported Psychiatric: reports: No Sypmtoms Reported, Judgement Intact, Mood/Affect Appropiate, Orientated x3 Other Systems: Reviewed and Negative Patient History - Patient Medical History Hx Anemia: No Hx Asthma: No Hx Chronic Obstructive Pulmonary Disease (COPD): No Hx Cancer: No Hx Cardiac Disorders: No Hx Congestive Heart Failure: No Hx Hypertension: No Hx Hypercholesterolemia: No Hx Pacemaker: No HX Cerebrovascular Accident: No Hx Seizures: Yes (drug/etoh related last 02/27) Hx Dementia: No Hx Diabetes: No Hx Gastrointestinal Disorders: No Hx Liver Disease: Yes (no treatment hepatitis c) Hx Genitourinary Disorders: No Hx Sexually Transmitted Disorders: No Hx Renal Disease (ESRD): No Hx Thyroid Disease: No Hx Human Immunodeficiency Virus (HIV): No (negative last 03/30 negative) Hx Hepatitis C: Yes (no treatment) Hx Depression: No Hx Suicide Attempt: No Hx Bipolar Disorder: No Hx Schizophrenia: No Other Medical History: no suicidal,n homicidal - Patient Surgical History Past Surgical History: No Hx Neurologic Surgery: No Hx Cataract Extraction: No Hx Cardiac Surgery: No Hx Lung Surgery: No Hx Breast Surgery: No Hx Breast Biopsy: No Hx Abdominal Surgery: No Hx Appendectomy: No Hx Cholecystectomy: No Hx Genitourinary Surgery: No Hx Section: No Hx Orthopedic Surgery: No Anesthesia Reaction: No - PPD History Previous Implant?: Yes Documented Results: Negative w/proof Implanted On Prior R Admission?: Yes Date: 05/19/18 Results: 0 mm PPD to be Administered?: No - Smoking Cessation Smoking history: Current every day smoker Have you smoked in the past 12 months: Yes Aproximately how many cigarettes per day: 4 Cigars Per Day: 0 Hx Chewing Tobacco Use: No Initiated information on smoking cessation: Yes 'Breaking Loose' booklet given: 08/23/18 - Substance & Tx. History Hx Alcohol Use: Yes Hx Substance Use: Yes Substance Use Type: Alcohol, Heroin Hx Substance Use Treatment: Yes ([facility] 07/03/18 to 07/05/18) - Substances abused Alcohol Substance route: Oral Frequency: Daily Amount used: 2 PINTS VODKA AND 2 + 6PACKS BEER Age of first use: 17 Date of last use: 08/23/18 Heroin Substance route: Injection Frequency: Daily Amount used: 20 BAGS Age of first use: 17 Date of last use: 08/22/18 Cocaine Substance route: Injection Frequency: Daily Amount used: $100 Age of first use: 27 Date of last use: 08/22/18 Non-Rx Methadone Substance route: Oral Frequency: 1-3 times last 30 days Amount used: $10 Age of first use: 17 Date of last use: 08/19/18 Family Disease History - Family Disease History Family History: Denies Admission Physical Exam [facility] - Vital Signs Vital Signs: Vital Signs - 24 hr 08/23/18 09:06 Temperature 97.5 F L Pulse Rate 68 Respiratory 12 Rate Blood Pressure 106/67 - Physical General Appearance: Yes: Moderate Distress, Tremorous, Irritable, Sweating, Anxious HEENTM: Yes: Normal ENT Inspection, SALUD, Pharynx Normal Respiratory: Yes: Lungs Clear, Normal Breath Sounds, No Respiratory Distress Neck: Yes: Within Normal Limits, Supple, Trachea in good position Breast: Yes: Breast Exam Deferred Cardiology: Yes: Within Normal Limits, Regular Rhythm, Regular Rate, S1, S2 Abdominal: Yes: Normal Bowel Sounds, Non Tender, Flat, Soft Genitourinary: Yes: Within Normal Limits Back: Yes: Muscle Spasm Musculoskeletal: Yes: Back pain, Joint Stiffness, Muscle Pain Extremities: Yes: Tremors 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: 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, Fully Oriented, Alert, Motor Strength 5/5 Integumentary: Yes: Dry, Track [place]ke[place] Lymphatic: Yes: Within Normal Limits - Diagnostic (1) Opioid dependence with withdrawal Current Visit: No Status: Acute (2) Alcohol dependence with uncomplicated withdrawal Current Visit: No Status: Acute (3) Weight decreased Current Visit: No Status: Acute (4) Cocaine dependence Current Visit: No Status: Acute Qualifiers: Substance use status: in withdrawal Qualified Code(s): F14.23 - Cocaine dependence with withdrawal (5) IVDU (intravenous drug user) Current Visit: No Status: Acute (6) Nicotine dependence Current Visit: No Status: Acute Qualifiers: Nicotine product type: cigarettes Substance use status: in withdrawal Qualified Code(s): F17.213 - Nicotine dependence, cigarettes, with withdrawal (7) Hepatitis C Current Visit: No Status: Chronic Qualifiers: Viral hepatitis chronicity: chronic Hepatic coma status: without hepatic coma Qualified Code(s): B18.2 - Chronic viral hepatitis C Cleared for Admission S - Detox or Rehab [facility] Level of Care: Medically Managed Detox Regimen/Protocol: Methadone/Librium Breathalyzer - Breathalyzer Breathalyzer: 0.028 Urine Drug Screen - Test Device Lot number: [id number] Expiration date: 03/11/20 - Control Is test valid?: Yes - Results Drug screen NEGATIVE: No Urine drug screen results: MISSY-Cocaine, FEN-Fentanyl, MOP-Opiates, MTD-Methadone , BAR-Barbiturates Inpatient Rehab Admission - Rehab Decision to Admit Inpatient rehab admission?: No
[2018-08-23] MEDS ORDERED: cloNIDine HCL 0.1 MG TABLET PO PRN (09:42)
[2018-08-23] MEDS ORDERED: METHADONE HCL 10 MG TABLET (FOR DETOX USE ONLY) PO ONE (09:42)
[2018-08-23] MEDS ORDERED: chlordiazePOXIDE HCL 25 MG CAPSULE PO PRN (09:43)
[2018-08-23] MEDS ORDERED: METHOCARBAMOL 500 MG TABLET PO PRN (09:44)
[2018-08-23] MEDS ORDERED: MAG HYDROX/AL HYDROX/SIMETH 30 ML UNIT-DOSE CUP PO PRN (09:44)
[2018-08-23] MEDS ORDERED: IBUPROFEN 400 MG TABLET (FP) PO PRN (09:44)
[2018-08-23] MEDS ORDERED: NICOTINE POLACRILEX 2 MG GUM BUC PRN (09:44)
[2018-08-23] MEDS ORDERED: BISMUTH SUBSALICYLATE 524 MG/30 ML UD PO PRN (09:44)
[2018-08-23] MEDS ORDERED: MAGNESIUM HYDROX 2400MG/30ML ORAL SUSPENSION 30 ML CUP PO PRN (09:44)
[2018-08-23] MEDS ORDERED: MAGNESIUM CITRATE 300 ML BOTTLE PO PRN (09:44)
[2018-08-23] MEDS ORDERED: hydrOXYzine PAMOATE 25 MG CAPSULE (FP) PO PRN (09:44)
[2018-08-23] MEDS ORDERED: MENTHOL/PHENOL 1 EACH UD MM PRN (09:44)
[2018-08-23] MEDS: PRENATAL VITAMINS W/ FOLIC ACID TABLET (FP) PO SCH (11:15)
[2018-08-23] MEDS: chlordiazePOXIDE HCL 25 MG CAPSULE PO SCH ×3 (11:15→22:50)
[2018-08-23] MEDS: HYDROCORTISONE 0.5% TOPICAL CREAM 30 GM TUBE TP SCH ×4 (11:15→22:49)
[2018-08-23 14:47] LABS: HEMATOCRIT 34.6 % (35.4-49); HEMOGLOBIN 11.6 GM/dL (11.7-16.9); MCH 28.3 pg (25.7-33.7); MCHC 33.6 g/dl (32.0-35.9); MEAN CELL VOLUME 84.2 fl (80-96); MEAN PLT VOLUME 8.6 fl (7.5-11.1); PLATELET COUNT 209 K/MM3 (134-434); RBC 4.11 M/mm3 (4.00-5.60); RDW 14.1 % (11.9-15.9); WHITE BLOOD COUNT 6.5 K/mm3 (4.0-10.0)
[2018-08-23 14:56] LABS: ALBUMIN 3.5 g/dl (3.4-5.0); BILIRUBIN,TOTAL 0.6 mg/dL (0.2-1); BLOOD UREA NITROGEN 23.2 mg/dL (7-18); CALCIUM 8.5 mg/dL (8.5-10.1); CREATININE 1.2 mg/dL (0.55-1.3); POTASSIUM 4.4 mmol/L (3.5-5.1); TOT PROT 6.8 g/dl (6.4-8.2)
[2018-08-23] MEDS: THIAMINE HCL 100 MG TABLET (FP) PO SCH (22:50)
[2018-08-23] MEDS: MELATONIN 5 MG TABLETS PO PRN (22:50)
[2018-08-24] MEDS: chlordiazePOXIDE HCL 25 MG CAPSULE PO SCH ×4 (06:00→22:00)
[2018-08-24] MEDS ORDERED: METHADONE (DETOX) 20 MG, METHADONE (DETOX) 5 MG PO ONE (10:00)
[2018-08-24] MEDS ORDERED: METHADONE HCL 5 MG TABLET (FOR DETOX USE ONLY) ONE (10:02)
[2018-08-24] MEDS ORDERED: METHADONE HCL 10 MG TABLET (FOR DETOX USE ONLY) ONE (10:02)
--- NOTE | 2018-08-24 10:18 | PN ---
S CIWA - CIWA Score Nausea/Vomitin Muscle Tremors: 2 Anxiety: 3 Agitation: 3 Paroxysmal Sweats: No Perspiration Orientation: 0-Oriented Tacttile Disturbances: 1-Very Mild Itch/Numbness Auditory Disturbances: 0-None Visual Disturbances: 0-None Headache: 1-Very Mild CIWA-Ar Total Score: 12 BHS COWS - Scale Resting Pulse: 0= [place] 80 or Below Sweatin= Chills/Flushing Restless Observation: 1= Difficult to Sit Still Pupil Size: 1= Pupils >than Normal Bone or Joint Aches: 2= Severe Diffuse Aches Runny Nose/ Eye Tearin= Nasal Congestion GI Upset > 30mins: 2= Nausea/Diarrhea Tremor Observation of Outstretched Hands: 2= Slight Tremor Visible Yawning Observation: 1= 1-2x During Session Anxiety or Irritability: 2=Irritable/Anxious Goose Flesh Skin: 0=Smooth Skin COWS Score: 13 S Progress Note (SOAP) Subjective: alert,irritable,anxious,interrupted sleep,tremor,pain in the body and back Objective: 08/24/18 10:17 Vital Signs Temperature 97 F L 08/24/18 09:33 Pulse Rate 61 08/24/18 09:33 Respiratory Rate 16 08/24/18 09:33 Blood Pressure 121/67 08/24/18 09:33 O2 Sat by Pulse Oximetry (%) 08/23/18 08/23/18 10:40 10:40 WBC 6.5 RBC 4.11 Hgb 11.6 L Hct 34.6 L MCV 84.2 MCHC 33.6 RDW 14.1 Plt Count 209 D Sodium 140 Potassium 4.4 Chloride 102 Carbon Dioxide 32 Anion Gap 6 L BUN 23.2 H Creatinine 1.2 labs pending Assessment: 08/24/18 10:17 withdrawal symptom Plan: continue detox methadone and librium regimen,encourage oral fluid
[2018-08-24] MEDS: PRENATAL VITAMINS W/ FOLIC ACID TABLET (FP) PO SCH (10:25)
[2018-08-24] MEDS: HYDROCORTISONE 0.5% TOPICAL CREAM 30 GM TUBE TP SCH ×4 (10:26→22:01)
[2018-08-24] MEDS: THIAMINE HCL 100 MG TABLET (FP) PO SCH (22:00)
[2018-08-24] MEDS: MELATONIN 5 MG TABLETS PO PRN (22:00)
[2018-08-25] MEDS: chlordiazePOXIDE HCL 25 MG CAPSULE PO SCH ×2 (06:00→10:08)
[2018-08-25] MEDS ORDERED: METHADONE HCL 10 MG TABLET (FOR DETOX USE ONLY) PO ONE (10:00)
[2018-08-25] MEDS: PRENATAL VITAMINS W/ FOLIC ACID TABLET (FP) PO SCH (10:08)
[2018-08-25] MEDS: HYDROCORTISONE 0.5% TOPICAL CREAM 30 GM TUBE TP SCH (10:10)
--- NOTE | 2018-08-25 10:30 | PN ---
S Progress Note Note: Patient requested to leave AMA, no SI/HI, refuse referrals and walked off the unit.
--- NOTE | 2018-08-25 10:31 | DS ---
[facility] Detox Discharge Summary Admission Date: 08/23/18 Discharge Date: 08/25/18 - History Present History: Alcohol Dependence, Opioid Dependence Pertinent Past History: ETOH, opioid and cocaine dependence, HEP c - Physical Exam Results Vital Signs: Vital Signs Temperature 97.3 F L 08/25/18 07:22 Pulse Rate 57 L 08/25/18 07:22 Respiratory Rate 18 08/25/18 07:22 Blood Pressure 100/60 08/25/18 07:22 O2 Sat by Pulse Oximetry (%) Pertinent Admission Physical Exam Findings: Patient stable, no SI/HI. Patient refuse to complete treatment. Follow up with ED if worsening symptoms are present and follow up with PCP. - Treatment Hospital Course: Discharged Condition Good Patient has Accepted a Rehab Referral to: patient refuse referral - Medication Discharge Medications: Ambulatory Orders NK [No Known Home Medication] 08/23/18 - Diagnosis (1) Alcohol dependence with uncomplicated withdrawal Current Visit: No Status: Acute (2) Cocaine dependence Current Visit: No Status: Acute Qualifiers: Substance use status: in withdrawal Qualified Code(s): F14.23 - Cocaine dependence with withdrawal (3) Hep C w/ coma, chronic Current Visit: No Status: Acute (4) IVDU (intravenous drug user) Current Visit: No Status: Acute (5) Nicotine dependence Current Visit: No Status: Acute Qualifiers: Nicotine product type: cigarettes Substance use status: in withdrawal Qualified Code(s): F17.213 - Nicotine dependence, cigarettes, with withdrawal (6) Opioid dependence with withdrawal Current Visit: No Status: Acute (7) Weight decreased Current Visit: No Status: Acute - AMA Did Patient Leave Against Medical Advice: Yes
[2018-08-25 12:53] VITALS: BP 116/79; PULSE 62; TEMP 96.9
[2018-08-26] MEDS ORDERED: chlordiazePOXIDE HCL 10 MG CAPSULE PO PRN
[2018-08-26] MEDS ORDERED: chlordiazePOXIDE HCL 10 MG CAPSULE PO SCH (05:00)
[2018-08-26] MEDS ORDERED: METHADONE (DETOX) 10 MG, METHADONE (DETOX) 5 MG PO ONE (10:00)
[2018-08-27] MEDS ORDERED: chlordiazePOXIDE HCL 10 MG CAPSULE PO SCH (05:00)
[2018-08-27] MEDS ORDERED: METHADONE HCL 10 MG TABLET (FOR DETOX USE ONLY) PO ONE (10:00)
[2018-08-28] MEDS ORDERED: chlordiazePOXIDE HCL 10 MG CAPSULE PO ONE (05:00)
[2018-08-28] MEDS ORDERED: METHADONE HCL 5 MG TABLET (FOR DETOX USE ONLY) PO ONE (06:00)
== END 2018-08-25 10:30 | disposition left against medical advice (07) | DRG 770 ==
LOC: YASAS 08:18 → Y6N 09:47
PROVIDERS: ADMIT Surgery; ATTEND Surgery
PROC: HZ2ZZZZ Detoxification Services for Substance Abuse Treatment (ICD-10-PCS; principal; 2018-08-23)
DX: F11.23 Opioid dependence with withdrawal (principal); F10.230 Alcohol dependence with withdrawal, uncomplicated; F14.20 Cocaine dependence, uncomplicated; F17.213 Nicotine dependence, cigarettes, with withdrawal; B18.2 Chronic viral hepatitis C; R63.4 Abnormal weight loss; Z86.69 Personal history of other diseases of the nervous system and sense organs; Z88.6 Allergy status to analgesic agent; Z91.013 Allergy to seafood
CPT/HCPCS: 36415; 80053; 81003; 85027; 86593; 87389

== ENCOUNTER 2018-09-24 08:33 | Inpatient (IN) | payer OTHER ==
[2018-09-24 08:58] VITALS: BMI 21.2
--- NOTE | 2018-09-24 10:10 | HP ---
COWS - Scale Resting Pulse: 0= [place] 80 or Below Sweatin= Chills/Flushing Restless Observation: 1= Difficult to Sit Still Pupil Size: 1= Pupils >than Normal Bone or Joint Aches: 2= Severe Diffuse Aches Runny Nose/ Eye Tearin= Runny Nose/Eyes GI Upset > 30mins: 2= Nausea/Diarrhea Tremor Observation: 2= Slight Tremor Visible Yawning Observation: 1= 1-2x During Session Anxiety or Irritability: 2=Irritable/Anxious Goose Flesh Skin: 0=Smooth Skin COWS Score: 14 CIWA Score Nausea/Vomitin Muscle Tremors: 2 Anxiety: 3 Agitation: 3 Paroxysmal Sweats: 1-Minimal Palms Moist Orientation: 0-Oriented Tacttile Disturbances: 1-Very Mild Itch/Numbness Auditory Disturbances: 0-None Visual Disturbances: 0-None Headache: 2-Mild CIWA-Ar Total Score: 14 - Admission Criteria OASAS Guidelines: Admission for Medically Managed Detox: Requires at least one of the followin. CIWA greater than 12 2. Seizures within the past 24 hours 3. Delirium tremens within the past 24 hours 4. Hallucinations within the past 24 hours 5. Acute intervention needed for co occurring medical disorder 6. Acute intervention needed for co occurring psychiatric disorder 7. Severe withdrawal that cannot be handled at a lower level of care (continued vomiting, continued diarrhea, abnormal vital signs) requiring intravenous medication and/or fluids 8. Admission ROS S - [facility] Chief Complaint: i need help to stop using heroin,cocaine,alcohol Allergies/Adverse Reactions: Allergies Allergy/AdvReac Type Severity Reaction Status Date / Time acetaminophen [From Tylenol] Allergy Severe Verified 09/24/18 08:52 Fish Containing Products Allergy Severe Verified 09/24/18 08:52 History of Present Illness: this 53 year old male with heroin,alcohol,cocaine dependence seeking detox, withdrawal symptom, homeless multiple admissions in detox but relapsed weight loss hepatitis c no treatment nicotine dependence 2 cigarette no significant period of sobriety plan for rehab after detox seizure Exam Limitations: No Limitations - Ebola screening Have you traveled outside of the country in the last 21 days: No (N) Have you had contact with anyone from an Ebola affected area: No Do you have a fever: No - Review of Systems Constitutional: Chills, Diaphoresis, Loss of Appetite, Malaise, Night Sweats, Changes in sleep EENT: reports: Tearing, Nose Congestion Respiratory: reports: No Symptoms reported Cardiac: reports: No Symptoms Reported GI: reports: Nausea, Poor Appetite, Abdominal cramping : reports: No Symptoms Reported Musculoskeletal: reports: Back Pain, Joint Pain, Muscle Pain, Joint Stiffness Integumentary: reports: Dryness Neuro: reports: Headache, Tremors Endocrine: reports: No Symptoms Reported Hematology: reports: No Symptoms Reported Psychiatric: reports: No Sypmtoms Reported, Judgement Intact, Mood/Affect Appropiate, Orientated x3 Other Systems: Reviewed and Negative Patient History - Patient Medical History Hx Anemia: No Hx Asthma: No Hx Chronic Obstructive Pulmonary Disease (COPD): No Hx Cancer: No Hx Cardiac Disorders: No Hx Congestive Heart Failure: No Hx Hypertension: No Hx Hypercholesterolemia: No Hx Pacemaker: No HX Cerebrovascular Accident: No Hx Seizures: Yes (drug/etoh related last 02/27) Hx Dementia: No Hx Diabetes: No Hx Gastrointestinal Disorders: No Hx Liver Disease: Yes (no treatment hepatitis c) Hx Genitourinary Disorders: No Hx Sexually Transmitted Disorders: No Hx Renal Disease (ESRD): No Hx Thyroid Disease: No Hx Human Immunodeficiency Virus (HIV): No (negative last 03/30 negative) Hx Hepatitis C: Yes (no treatment) Hx Depression: No Hx Suicide Attempt: No Hx Bipolar Disorder: No Hx Schizophrenia: No Other Medical History: no suicidal,no homicidal - Patient Surgical History Past Surgical History: No Hx Neurologic Surgery: No Hx Cataract Extraction: No Hx Cardiac Surgery: No Hx Lung Surgery: No Hx Breast Surgery: No Hx Breast Biopsy: No Hx Abdominal Surgery: No Hx Appendectomy: No Hx Cholecystectomy: No Hx Genitourinary Surgery: No Hx Section: No Hx Orthopedic Surgery: No Anesthesia Reaction: No - PPD History Previous Implant?: Yes Documented Results: Negative w/proof Implanted On Prior R Admission?: Yes Date: 05/19/18 Results: 0 mm PPD to be Administered?: No - Smoking Cessation Smoking history: Current every day smoker Have you smoked in the past 12 months: Yes Aproximately how many cigarettes per day: 4 Cigars Per Day: 0 Hx Chewing Tobacco Use: No Initiated information on smoking cessation: Yes 'Breaking Loose' booklet given: 09/24/18 - Substance & Tx. History Hx Alcohol Use: Yes Hx Substance Use: Yes Substance Use Type: Alcohol, Cocaine, Heroin Hx Substance Use Treatment: Yes ([facility] 08/23/18 to 08/25/18 not completed) - Substances abused Alcohol Substance route: Oral Frequency: Daily Amount used: 2 PINTS VODKA AND 2 + 6PACKS BEER @$ ozs Age of first use: 17 Date of last use: 09/23/18 Heroin Substance route: Injection Frequency: Daily Amount used: 22 BAGS Age of first use: 17 Date of last use: 09/23/18 Cocaine Substance route: Injection Frequency: Daily Amount used: $100 Age of first use: 27 Date of last use: 09/23/18 Non-Rx Methadone Substance route: Oral Frequency: 1-3 times last 30 days Amount used: $10 Age of first use: 17 Date of last use: 09/22/18 Family Disease History - Family Disease History Family History: Denies Admission Physical Exam [facility] - Vital Signs Vital Signs: Vital Signs - 24 hr 09/24/18 08:52 Temperature 96.5 F L Pulse Rate 53 L Respiratory 16 Rate Blood Pressure 104/71 - Physical General Appearance: Yes: Moderate Distress, Tremorous, Irritable, Sweating, Anxious HEENTM: Yes: Normal ENT Inspection, SALUD, Pharynx Normal Respiratory: Yes: Lungs Clear, Normal Breath Sounds, No Respiratory Distress Neck: Yes: Within Normal Limits, Supple, Trachea in good position Breast: Yes: Within Normal Limits Cardiology: Yes: Within Normal Limits, Regular Rhythm, Regular Rate, S1, S2 Abdominal: Yes: Within Normal Limits, Normal Bowel Sounds, Non Tender, Flat, Soft Genitourinary: Yes: Within Normal Limits Back: Yes: Normal Inspection, Muscle Spasm Musculoskeletal: Yes: Back pain, Joint Stiffness, Muscle Pain Extremities: Yes: Normal Range of Motion, Tremors 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: library helper II-XII NML intact, Fully Oriented, Alert, Motor Strength 5/5 Integumentary: Yes: Dry, Track Mckeon Lymphatic: Yes: Within Normal Limits - Diagnostic (1) Opioid dependence with withdrawal Current Visit: No Status: Acute (2) Alcohol dependence with uncomplicated withdrawal Current Visit: No Status: Acute (3) Cocaine dependence Current Visit: No Status: Acute Qualifiers: Substance use status: in withdrawal Qualified Code(s): F14.23 - Cocaine dependence with withdrawal (4) IVDU (intravenous drug user) Current Visit: No Status: Acute (5) Nicotine dependence Current Visit: No Status: Acute Qualifiers: Nicotine product type: cigarettes Substance use status: in withdrawal Qualified Code(s): F17.213 - Nicotine dependence, cigarettes, with withdrawal (6) Weight decreased Current Visit: No Status: Acute (7) Hepatitis C Current Visit: No Status: Chronic Qualifiers: Viral hepatitis chronicity: chronic Hepatic coma status: without hepatic coma Qualified Code(s): B18.2 - Chronic viral hepatitis C (8) Seizure Current Visit: Yes Status: Acute Cleared for Admission S - Detox or Rehab [facility] Level of Care: Medically Managed Detox Regimen/Protocol: Methadone/Librium Breathalyzer - Breathalyzer Breathalyzer: 0 Urine Drug Screen - Test Device Lot number: [id number] Expiration date: 07/09/20 - Control Is test valid?: Yes - Results Drug screen NEGATIVE: No Urine drug screen results: MISSY-Cocaine, MET-Methamphetamine, FEN-Fentanyl, MOP- Opiates, MTD-Methadone, BZO-Benzodiazepines Inpatient Rehab Admission - Rehab Decision to Admit Inpatient rehab admission?: No
[2018-09-24] MEDS ORDERED: MENTHOL/PHENOL 1 EACH UD MM PRN (10:19)
[2018-09-24] MEDS ORDERED: MAG HYDROX/AL HYDROX/SIMETH 30 ML UNIT-DOSE CUP PO PRN (10:19)
[2018-09-24] MEDS ORDERED: IBUPROFEN 400 MG TABLET (FP) PO PRN (10:19)
[2018-09-24] MEDS ORDERED: cloNIDine HCL 0.1 MG TABLET PO PRN (10:19)
[2018-09-24] MEDS ORDERED: chlordiazePOXIDE HCL 25 MG CAPSULE PO PRN (10:19)
[2018-09-24] MEDS ORDERED: BISMUTH SUBSALICYLATE 262 MG/15 ML BTL PO PRN (10:19)
[2018-09-24] MEDS ORDERED: MAGNESIUM HYDROX 2400MG/30ML ORAL SUSPENSION 30 ML CUP PO PRN (10:19)
[2018-09-24] MEDS ORDERED: METHOCARBAMOL 500 MG TABLET PO PRN (10:19)
[2018-09-24] MEDS ORDERED: MAGNESIUM CITRATE 300 ML BOTTLE PO PRN (10:19)
[2018-09-24] MEDS ORDERED: hydrOXYzine HCL 25 MG TABLET (FP) PO PRN (10:19)
[2018-09-24] MEDS ORDERED: MELATONIN 5 MG TABLETS PO PRN (10:19)
[2018-09-24] MEDS ORDERED: METHADONE HCL 10 MG TABLET (FOR DETOX USE ONLY) PO ONE (11:00)
[2018-09-24 15:21] LABS: HEMATOCRIT 36.3 % (35.4-49); HEMOGLOBIN 12.2 GM/dL (11.7-16.9); MCH 28.7 pg (25.7-33.7); MCHC 33.5 g/dl (32.0-35.9); MEAN CELL VOLUME 85.7 fl (80-96); MEAN PLT VOLUME 8.3 fl (7.5-11.1); PLATELET COUNT 260 K/MM3 (134-434); RBC 4.24 M/mm3 (4.00-5.60); RDW 14.5 % (11.9-15.9); WHITE BLOOD COUNT 4.7 K/mm3 (4.0-10.0)
[2018-09-24 15:32] LABS: ALBUMIN 3.5 g/dl (3.4-5.0); BILIRUBIN,TOTAL 0.3 mg/dL (0.2-1); BLOOD UREA NITROGEN 20.9 mg/dL (7-18); CALCIUM 9.2 mg/dL (8.5-10.1); CREATININE 1.1 mg/dL (0.55-1.3); POTASSIUM 4.3 mmol/L (3.5-5.1); TOT PROT 6.9 g/dl (6.4-8.2)
[2018-09-24] MEDS: chlordiazePOXIDE HCL 25 MG CAPSULE PO SCH ×2 (17:30→22:52)
[2018-09-24] MEDS: THIAMINE HCL 100 MG TABLET (FP) PO SCH (22:52)
[2018-09-25] MEDS: chlordiazePOXIDE HCL 25 MG CAPSULE PO SCH ×3 (05:30→17:18)
[2018-09-25] MEDS ORDERED: METHADONE HCL 10 MG TABLET (FOR DETOX USE ONLY) ONE (09:09)
[2018-09-25] MEDS ORDERED: METHADONE HCL 5 MG TABLET (FOR DETOX USE ONLY) ONE (09:10)
[2018-09-25] MEDS ORDERED: METHADONE (DETOX) 20 MG, METHADONE (DETOX) 5 MG PO ONE (10:00)
[2018-09-25] MEDS: PRENATAL VITAMINS W/ FOLIC ACID TABLET (FP) PO SCH (10:09)
--- NOTE | 2018-09-25 10:40 | PN ---
S CIWA - CIWA Score Nausea/Vomitin-No Nausea/No Vomiting Muscle Tremors: 2 Anxiety: 3 Agitation: 0-Normal Activity Paroxysmal Sweats: 3 Orientation: 0-Oriented Tacttile Disturbances: 1-Very Mild Itch/Numbness Auditory Disturbances: 0-None Visual Disturbances: 0-None Headache: 2-Mild CIWA-Ar Total Score: 11 BHS COWS - Scale Resting Pulse: 0= [place] 80 or Below Sweatin= Beads of Sweat on Face Restless Observation: 1= Difficult to Sit Still Pupil Size: 0= Normal to Room Light Bone or Joint Aches: 2= Severe Diffuse Aches Runny Nose/ Eye Tearin= None GI Upset > 30mins: 0= None Tremor Observation of Outstretched Hands: 2= Slight Tremor Visible Yawning Observation: 1= 1-2x During Session Anxiety or Irritability: 2=Irritable/Anxious Goose Flesh Skin: 0=Smooth Skin COWS Score: 11 S Progress Note (SOAP) Subjective: c/o sweats, anxiety, irritability, mild shakes, and headache. Objective: 09/25/18 10:38 Vital Signs 09/25/18 09/25/18 09/25/18 03:30 06:30 06:39 Temperature 97.9 F Pulse Rate 59 L Respiratory 18 18 18 Rate Blood Pressure 115/66 09/25/18 09:27 Temperature 97.9 F Pulse Rate 54 L Respiratory 18 Rate Blood Pressure 115/69 Lab Results WBC 4.7 K/mm3 (4.0-10.0) 09/24/18 10:15 RBC 4.24 M/mm3 (4.00-5.60) 09/24/18 10:15 Hgb 12.2 GM/dL (11.7-16.9) 09/24/18 10:15 Hct 36.3 % (35.4-49) 09/24/18 10:15 MCV 85.7 fl (80-96) 09/24/18 10:15 MCHC 33.5 g/dl (32.0-35.9) 09/24/18 10:15 RDW 14.5 % (11.9-15.9) 09/24/18 10:15 Plt Count 260 K/MM3 (134-434) D 09/24/18 10:15 Sodium 140 mmol/L (136-145) 09/24/18 10:15 Potassium 4.3 mmol/L (3.5-5.1) 09/24/18 10:15 Chloride 102 mmol/L (98-107) 09/24/18 10:15 Carbon Dioxide 33 mmol/L (21-32) H 09/24/18 10:15 Anion Gap 5 MMOL/L (8-16) L 09/24/18 10:15 BUN 20.9 mg/dL (7-18) H 09/24/18 10:15 Creatinine 1.1 mg/dL (0.55-1.3) 09/24/18 10:15 Random Glucose 96 mg/dL (74-106) 09/24/18 10:15 Calcium 9.2 mg/dL (8.5-10.1) 09/24/18 10:15 Labs noted. Assessment: 09/25/18 10:39 AOX3, in no acute distress. Full ROM, ambulating in the unit. Withdrawal symptoms. Plan: continue detox.
[2018-09-26] MEDS: chlordiazePOXIDE HCL 25 MG CAPSULE PO SCH ×5 (00:16→22:12)
[2018-09-26] MEDS: THIAMINE HCL 100 MG TABLET (FP) PO SCH ×2 (00:17→22:12)
[2018-09-26] MEDS ORDERED: METHADONE HCL 10 MG TABLET (FOR DETOX USE ONLY) PO ONE (10:00)
[2018-09-26] MEDS: PRENATAL VITAMINS W/ FOLIC ACID TABLET (FP) PO SCH (10:11)
--- NOTE | 2018-09-26 12:19 | PN ---
[facility] CIWA - CIWA Score Nausea/Vomitin-No Nausea/No Vomiting Muscle Tremors: 2 Anxiety: 2 Agitation: 3 Paroxysmal Sweats: 2 Orientation: 0-Oriented Tacttile Disturbances: 0-None Auditory Disturbances: 0-None Visual Disturbances: 0-None Headache: 0-None Present CIWA-Ar Total Score: 9 BHS COWS - Scale Resting Pulse: 0= [place] 80 or Below Sweatin= Chills/Flushing Restless Observation: 1= Difficult to Sit Still Pupil Size: 0= Normal to Room Light Bone or Joint Aches: 1= Mild Discomfort Runny Nose/ Eye Tearin= Nasal Congestion GI Upset > 30mins: 0= None Tremor Observation of Outstretched Hands: 1= Tremor Dulce, Not Seen Yawning Observation: 1= 1-2x During Session Anxiety or Irritability: 2=Irritable/Anxious Goose Flesh Skin: 0=Smooth Skin COWS Score: 8 S Progress Note (SOAP) Subjective: sweats mild shakes interrupted sleep body aches anxiety Objective: 09/26/18 12:18 Vital Signs Temperature 97.5 F L 09/26/18 09:39 Pulse Rate 50 L 09/26/18 09:39 Respiratory Rate 18 09/26/18 09:39 Blood Pressure 107/50 L 09/26/18 09:39 O2 Sat by Pulse Oximetry (%) Laboratory Tests 09/24/18 09/24/18 09/24/18 10:15 10:15 10:15 WBC 4.7 RBC 4.24 Hgb 12.2 Hct 36.3 MCV 85.7 MCH 28.7 MCHC 33.5 RDW 14.5 Plt Count 260 D MPV 8.3 Sodium 140 Potassium 4.3 Chloride 102 Carbon Dioxide 33 H Anion Gap 5 L BUN 20.9 H Creatinine 1.1 Est GFR (CKD-EPI)AfAm 89.61 Est GFR (CKD-EPI)NonAf 77.32 Random Glucose 96 Calcium 9.2 Total Bilirubin 0.3 AST 53 H ALT 48 Alkaline Phosphatase 103 Total Protein 6.9 Albumin 3.5 RPR Titer Nonreactive HIV 1&2 Antibody Screen HIV P24 Antigen 09/24/18 10:15 WBC RBC Hgb Hct MCV MCH MCHC RDW Plt Count MPV Sodium Potassium Chloride Carbon Dioxide Anion Gap BUN Creatinine Est GFR (CKD-EPI)AfAm Est GFR (CKD-EPI)NonAf Random Glucose Calcium Total Bilirubin AST ALT Alkaline Phosphatase Total Protein Albumin RPR Titer HIV 1&2 Antibody Screen Cancelled HIV P24 Antigen Cancelled labs noted aaox3 ambulating no acute distress Assessment: 09/26/18 12:18 withdrawal sx Plan: continue detox increase fluids
[2018-09-27] MEDS ORDERED: chlordiazePOXIDE HCL 10 MG CAPSULE PO PRN
[2018-09-27] MEDS: chlordiazePOXIDE HCL 10 MG CAPSULE PO SCH ×2 (06:18→10:19)
[2018-09-27] MEDS ORDERED: METHADONE HCL 10 MG TABLET (FOR DETOX USE ONLY) ONE (09:24)
[2018-09-27] MEDS ORDERED: METHADONE HCL 5 MG TABLET (FOR DETOX USE ONLY) ONE (09:25)
[2018-09-27 09:30] VITALS: BP 105/69; PULSE 66; TEMP 97.5
[2018-09-27] MEDS ORDERED: METHADONE (DETOX) 10 MG, METHADONE (DETOX) 5 MG PO ONE (10:00)
[2018-09-27] MEDS: PRENATAL VITAMINS W/ FOLIC ACID TABLET (FP) PO SCH (10:17)
--- NOTE | 2018-09-27 10:17 | DS ---
[facility] Detox Discharge Summary Admission Date: 09/24/18 Discharge Date: 09/27/18 - History Present History: Alcohol Dependence, Cocaine Dependence, Opioid Dependence, MMTP - Physical Exam Results Vital Signs: Vital Signs Temperature 97.5 F L 09/27/18 09:29 Pulse Rate 66 09/27/18 09:29 Respiratory Rate 18 09/27/18 09:29 Blood Pressure 105/69 09/27/18 09:29 O2 Sat by Pulse Oximetry (%) Pertinent Admission Physical Exam Findings: pt arrived in withdrawal Laboratory Tests 09/24/18 09/24/18 09/24/18 10:15 10:15 10:15 WBC 4.7 RBC 4.24 Hgb 12.2 Hct 36.3 MCV 85.7 MCH 28.7 MCHC 33.5 RDW 14.5 Plt Count 260 D MPV 8.3 Sodium 140 Potassium 4.3 Chloride 102 Carbon Dioxide 33 H Anion Gap 5 L BUN 20.9 H Creatinine 1.1 Est GFR (CKD-EPI)AfAm 89.61 Est GFR (CKD-EPI)NonAf 77.32 Random Glucose 96 Calcium 9.2 Total Bilirubin 0.3 AST 53 H ALT 48 Alkaline Phosphatase 103 Total Protein 6.9 Albumin 3.5 RPR Titer Nonreactive HIV 1&2 Antibody Screen HIV P24 Antigen 09/24/18 10:15 WBC RBC Hgb Hct MCV MCH MCHC RDW Plt Count MPV Sodium Potassium Chloride Carbon Dioxide Anion Gap BUN Creatinine Est GFR (CKD-EPI)AfAm Est GFR (CKD-EPI)NonAf Random Glucose Calcium Total Bilirubin AST ALT Alkaline Phosphatase Total Protein Albumin RPR Titer HIV 1&2 Antibody Screen Cancelled HIV P24 Antigen Cancelled today pt is aaox3 ambulating no acute distress - Treatment Hospital Course: Detox Protocol Followed, Detoxed Safely, Responded well, Discharged Condition Good, Rehab Referral Accepted Patient has Accepted a Rehab Referral to: pt declined rehab; referral provided - Medication Discharge Medications: Ambulatory Orders NK [No Known Home Medication] 08/23/18 - Diagnosis (1) Alcohol dependence with uncomplicated withdrawal Current Visit: Yes Status: Chronic (2) Cocaine dependence Current Visit: Yes Status: Chronic Qualifiers: Substance use status: uncomplicated Qualified Code(s): F14.20 - Cocaine dependence, uncomplicated (3) Hep C w/ coma, chronic Current Visit: No Status: Acute (4) IVDU (intravenous drug user) Current Visit: Yes Status: Chronic (5) Nicotine dependence Current Visit: Yes Status: Chronic Qualifiers: Nicotine product type: cigarettes Substance use status: uncomplicated Qualified Code(s): F17.210 - Nicotine dependence, cigarettes, uncomplicated (6) Opioid dependence with withdrawal Current Visit: Yes Status: Chronic (7) Hepatitis C Current Visit: No Status: Chronic Qualifiers: Viral hepatitis chronicity: chronic Hepatic coma status: without hepatic coma Qualified Code(s): B18.2 - Chronic viral hepatitis C (8) Methadone maintenance therapy patient Current Visit: Yes Status: Chronic - AMA Did Patient Leave Against Medical Advice: No
[2018-09-28] MEDS ORDERED: chlordiazePOXIDE HCL 10 MG CAPSULE PO SCH (05:00)
[2018-09-28] MEDS ORDERED: METHADONE HCL 10 MG TABLET (FOR DETOX USE ONLY) PO ONE (10:00)
[2018-09-29] MEDS ORDERED: chlordiazePOXIDE HCL 10 MG CAPSULE PO ONE (05:00)
[2018-09-29] MEDS ORDERED: METHADONE HCL 5 MG TABLET (FOR DETOX USE ONLY) PO ONE (06:00)
== END 2018-09-27 10:20 | disposition home or self-care (01) | DRG 773 ==
LOC: YASAS 08:33 → Y6N 10:22
PROVIDERS: ADMIT Surgery; ATTEND Surgery
PROC: HZ2ZZZZ Detoxification Services for Substance Abuse Treatment (ICD-10-PCS; principal; 2018-09-24)
DX: F11.23 Opioid dependence with withdrawal (principal); F10.230 Alcohol dependence with withdrawal, uncomplicated; F14.20 Cocaine dependence, uncomplicated; F17.210 Nicotine dependence, cigarettes, uncomplicated; B18.2 Chronic viral hepatitis C; Z86.69 Personal history of other diseases of the nervous system and sense organs; Z91.013 Allergy to seafood
CPT/HCPCS: 36415; 80053; 85027; 86593; 87389; J0735